=== PATIENT | female | born 1990 | race Caucasian/White ===

== ENCOUNTER 2020-05-21 00:55 | Observation (INO) | payer OTHER, SELFPAY ==
[~2020-05-21] VITALS: Ht 162.6 cm; Wt 49.9 kg
[2020-05-21 01:05] VITALS: BP 110/75
--- NOTE | 2020-05-21 01:05 | NUR ---
TO BED AMBULATORY
--- NOTE | 2020-05-21 01:12 | NUR ---
SEEN AND EXAMINED BY ESTUARDO WITH ORDERS AND CARRIED OUT
[2020-05-21] MEDS ORDERED: MAGNESIUM CITRATE 300 ML BTL PO ONE (01:25)
[2020-05-21] MEDS ORDERED: ONDANSETRON 4 MG ODT PO ONE (01:25)
--- NOTE | 2020-05-21 01:34 | NUR ---
29 Y/O FEMALE LEFT FLANK PAIN, RADIATING TO HER BACK FOR 2 MONTH. PT STATES 8/10 SHARP PAIN. WITH NAUSEA. MEDHX: DENIES NKA
[2020-05-21 01:37] LABS: APPEARANCE,URINE CLEAR (CLEAR); BILIRUBIN,URINE NEGATIVE (NEGATIVE); BLOOD, URINE NEGATIVE (NEGATIVE); COLOR,URINE YELLOW (YELLOW); LEUKOCYTE ESTERASE ,URINE NEGATIVE (NEGATIVE); NITRITE, URINE NEGATIVE (NEGATIVE); UGLUCOSE NEGATIVE (NEGATIVE)
--- NOTE | 2020-05-21 01:45 | NUR ---
PT TAKEN TO CT VIA W/C
--- NOTE | 2020-05-21 01:53 | NUR ---
PT RETURNED FROM CT VIA W/C
--- NOTE | 2020-05-21 02:51 | NUR ---
PT AMBULATED TO RESTROOM, STEADY GAIT
--- NOTE | 2020-05-21 02:52 | NUR ---
PT RETURNED TO BED 12, STEADY GAIT
[2020-05-21] MEDS ORDERED: NACL 0.9% 1,000 ML IV ONE ×2 (03:00)
--- NOTE | 2020-05-21 03:10 | NUR ---
LABS DRAWN AND HANDED TO ENVIRONMENTAL ECONOMIST
[2020-05-21 03:12] LABS: BASOPHILS # (AUTO) 0.1 K/uL (0.00-0.22); BASOPHILS % (AUTO) 1.2 % (0.0-2.0); EOSINOPHILS # (AUTO) 0.2 K/uL (0-0.4); EOSINOPHILS % (AUTO) 2.8 % (0.0-4.0); HEMATOCRIT 35.6 % (36-48); HEMOGLOBIN 11.9 g/dL (12.0-16.0); LYMPHOCYTES # (AUTO) 2.3 K/uL (2.5-16.5); LYMPHOCYTES % (AUTO) 37.9 % (20.5-51.1); MEAN CORPUSCULAR HEMOGLOBIN 30 pg (27-31); MEAN CORPUSCULAR HGB CONC 33 g/dL (33-37); MEAN CORPUSCULAR VOLUME 90.3 fL (80-94); MONOCYTES # (AUTO) 0.6 K/uL (0.8-1.0); MONOCYTES % (AUTO) 10.3 % (1.7-9.3); NEUTROPHILS # (AUTO) 2.9 K/uL (1.8-7.7); NEUTROPHILS % (AUTO) 47.8 % (42.2-75.2); PLATELET COUNT (AUTO) 267 K/uL (140-450); RED BLOOD CELL COUNT(AUTO) 3.94 MIL/uL (4.20-5.40); RED CELL DISTRIBUTION WIDTH 12.8 % (11.6-13.7); WHITE BLOOD COUNT (AUTO) 6.1 K/uL (4.8-10.8)
[2020-05-21 04:06] LABS: ALBUMIN 4.4 g/dL (3.4-5.0); ANION GAP 14.5 (8-16); CARBON DIOXIDE 25.3 mmol/L (21-32); CREATININE 0.7 mg/dL (0.6-1.3); POTASSIUM 3.8 mmol/L (3.5-5.1); TOTAL BILIRUBIN 0.4 mg/dL (0.0-1.0)
--- NOTE | 2020-05-21 04:35 | NUR ---
JENNIFER SWAB COLLECTED AND SENT TO LAB
[2020-05-21] MEDS ORDERED: ACETAMINOPHEN 325 MG TAB PO PRN (04:50)
[2020-05-21] MEDS: LACTATED RINGERS 1,000 ML IV SCH ×2 (04:50→14:50)
[2020-05-21] MEDS ORDERED: MORPHINE SULFATE 2 MG/ML SYR IVP PRN (04:50)
[2020-05-21] MEDS ORDERED: ONDANSETRON 4 MG/2 ML VIAL IVP PRN (04:50)
--- NOTE | 2020-05-21 05:21 | NUR ---
PT AMBULATED TO RESTROOM, STEADY GAIT
--- NOTE | 2020-05-21 05:25 | NUR ---
PT RETURNED TO BED 12, STEADY GAIT
--- NOTE | 2020-05-21 07:10 | NUR ---
REPORT GIVEN TO TED MIGUEL FOR CONTINUITY OF CARE
--- NOTE | 2020-05-21 08:00 | NUR ---
RECEIVED PATIENT FROM THE ER NURSE. PT IS AO X4. ABLE TO MAKE NEEDS KNOWN. RESPIRATIONS EVEN AND UNLABORED. NO DISTRESS NOTED. ON ROOM AIR WITH O2 SATURATION AT 100%. SKIN IS WARM AND DRY. IV SITE ON LAC 20G INFUSING FLUIDS WELL. INTACT AND PATENT. BOWEL SOUNDS ACTIVE IN ALL 4 QUADRANTS. ABDOMEN SOFT, FLAT AND NON DISTENDED. COMPLAINS OF NUMBNESS ON LUQ OF ABDOMEN. PLAN OF CARE WAS DISCUSSED. SAFETY PRECAUTIONS IN PLACE. BED IN LOW POSITION. CALL LIGHT WITHIN REACH. WILL CONTINUE TO MONITOR.
--- NOTE | 2020-05-21 08:04 | NUR ---
Patient will be admitted to care of DR. BAILEY. Admited to [facility]. Will go to room 104A. Belongings list completed. Report to BUTCH MIGUEL.
[2020-05-21] MEDS ORDERED: PANTOPRAZOLE 40 MG INJ VIAL IVP SCH (09:00)
--- NOTE | 2020-05-21 09:00 | NUR ---
ALL SCHEDULED MEDS GIVEN. PT IS STABLE. NO DISTRESS NOTED. WILL CONTINUE TO MONITOR.
--- NOTE | 2020-05-21 10:46 | NUR ---
SOCIAL WORK NOTE: Patient's Orientation Unable To Assess Information Provided By DEANDRE MCCRARY - SIGNIFICANT OTHER Comments SW WAS UNABLE TO MEET PATIENT AT BEDSIDE. SW COMPLETED ASSESSMENT WITH PATIENT'S SIGNIFICANT OTHER. PER SIGNIFICANT OTHER, PATIENT'S FAMILY IS ALL LIVING IN [place] AND HE DOES NOT HAVE THEIR CONTACT INFORMATION. [employer], Realtionship and Phone Number DEANDRE MCCRARY SIGNIFICANT OTHER [phone] Healthcare Power of Photocomposing Keyboard Operator No Does Patient Have a POLST No Identifying Problems No Social Work Triggers Is A Social Work Consult Needed No Mandate Report Filed No Explanation Of Identifying Problems PATIENT IS A 29-YEAR-OLD FEMALE ADMITTED FOR ABDOMINAL PAIN. PATIENT HAS PMHX OF HEMORRHOIDS. Admitted From Home Pre-Admission Level Of Functioning Status Independent/Ambulatory Prior Resources/Services Used In Last 12 Months No Prior Resources Used Prior DME No Prior DME Used Dialysis Comments N/A Living Situation House Rents A Room Other Living Situation/Comment PER SIGNIFICANT OTHER, PATIENT RENTS A ROOM FROM A FRIEND OF THE FAMILY. Patient Had Caregiver No Home Support No Caregiver Issues Financial Issues No Known Financial Issue Referral To The Financial Counselor Needed No Factors/Needs No D/C Needs Identified Pt/Rep Participated In Discharge Plan Yes Patient/Family Agress With Discharge Plan Yes Discharge Plan Comments TENTATIVE DISCHARGE PLAN IS FOR PATIENT TO RETURN HOME. DC Plan Status Initiated
[2020-05-21] MEDS ORDERED: HYDROcodone/APAP 5/325 MG 1 TAB TAB PO PRN (11:25)
--- NOTE | 2020-05-21 11:30 | NUR ---
CHECKED ON PATIENT. PATIENT IS STABLE. NO SIGNS OF DISTRESS NOTED. WILL CONTINUE TO MONITOR.
[2020-05-21] MEDS ORDERED: SODIUM PHOSPHATE 118 ML ENEM RC PRN (13:10)
--- NOTE | 2020-05-21 13:15 | NUR ---
PATIENT WAS SEEN BY DR. BAILEY. ASSESSED PATIENT'S HEMORRHOIDS. RN FEMALE FERRYBOAT OPERATOR HELPER WAS ATTENDING TO WITNESS PROCEDURE.
--- NOTE | 2020-05-21 13:20 | NUR ---
NEW ORDERS WERE PLACED AFTER THE ASSESSMENT BY THE MD. MEDICATIONS WERE PRESCRIBED AND PATIENT CLEAR FOR DISCHARGE.
--- NOTE | 2020-05-21 13:37 | NUR ---
PATIENT HAS BEEN SCREENED AND CATEGORIZED LOW NUTRITION RISK. PATIENT WILL BE SEEN WITHIN 7 DAYS OF ADMISSION. 05/27/[address]
--- NOTE | 2020-05-21 14:00 | NUR ---
DISCHARGE PAPER SIGNED AND COMPLETED BY PATIENT. AWAITING FOR FAMILY TO PICK PATIENT UP IN THE LOBBY. WILL CONTINUE TO MONITOR.
[2020-05-21 15:06] VITALS: BP 101/63
--- NOTE | 2020-05-21 15:30 | NUR ---
PATIENT DISCHARGED OFF THE UNIT. FAMILY IS PICKING PATIENT UP IN THE LOBBY. PATIENT WAS STABLE PRIOR TO BEING DISCHARGE.
[2020-05-22] MEDS ORDERED: POLYETHYLENE GLYCOL 17 GM/PKT PO SCH (09:00)
--- NOTE | 2020-05-25 20:34 | NUR ---
LATE ENTRY- Normal saline 0.9% IV fluids discontinued at 0422
== END 2020-05-21 15:30 | disposition home or self-care (01) ==
LOC: MED 00:55 → MMU 04:52 → MTU 06:21
PROVIDERS: ADMIT Hospitalist; ATTEND Hospitalist
DX: R10.32 Left lower quadrant pain (principal); Z20.822 Contact with and (suspected) exposure to COVID-19; R19.7 Diarrhea, unspecified; K59.00 Constipation, unspecified; K64.9 Unspecified hemorrhoids; K56.7 Ileus, unspecified
CPT/HCPCS: 36415; 74176; 80053; 81003; 83605; 85025; 87081; 87426; 96361; 96374; 99284; C9113; G0378; Q0162